=== PATIENT | female | born 1995 | race Caucasian/White ===

== ENCOUNTER 2016-11-05 16:14 | Emergency (ER) | payer OTHER ==
[~2016-11-05] VITALS: Ht 162.6 cm; Wt 70.0 kg
[2016-11-05 16:15] VITALS: TEMP 36.7; Ht 162.6 cm; Wt 70.0 kg
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
--- NOTE | 2016-11-05 16:52 | DIAGNOSTIC IMAGING REPORT ---
RIGHT TIBIA/FIBULA 2 VIEWS ROUTINE CLINICAL HISTORY: Right lower leg pain status post trauma COMPARISON: None. DISCUSSION: No acute fractures or dislocations are visualized. There are small calcific density projected over the mid anterior tibial cortex. These likely represent phleboliths although foreign bodies could appear similar. IMPRESSION: No fractures identified. Electronically signed by: Gael Brown M.D. 11/05/2016 4:50 PM Dictated Date/Time: 11/05/2016 4:48 PM
[2016-11-05 18:34] VITALS: BP 120/78; PULSE 102; O2SAT 98
== END 2016-11-05 18:39 | disposition home or self-care (01) ==
LOC: EDBD 16:14 → C.EDD 16:18
DX: S87.81XA Crushing injury of right lower leg, initial encounter (principal); S80.11XA Contusion of right lower leg, initial encounter; V03.10XA Pedestrian on foot injured in collision with car, pick-up truck or van in traffic accident, initial encounter; Y92.89 Other specified places as the place of occurrence of the external cause